=== PATIENT | male | born 1945 | race Caucasian/White ===

== ENCOUNTER 2021-01-20 17:00 | Inpatient (IN) | payer MEDICARE, OTHER ==
[~2021-01-20] VITALS: Ht 172.7 cm; Wt 111.3 kg
[2021-01-20] MEDS ORDERED: TAMS.4ER PO (17:15)
[2021-01-20] MEDS ORDERED: Aspir 8181 MG PO (17:16)
[2021-01-20] MEDS ORDERED: MAGNESIUM OXID500 MG PO (17:16)
[2021-01-20] MEDS ORDERED: LOSA50 PO (17:17)
[2021-01-20] MEDS ORDERED: LABE100 PO ×2 (17:17→18:41)
[2021-01-20] MEDS ORDERED: Methotrexa25 MG/1 ML IM (17:17)
[2021-01-20] MEDS ORDERED: WARF5 PO (17:17)
[2021-01-20] MEDS ORDERED: AMLO5 PO (17:18)
[2021-01-20] MEDS ORDERED: ATOR20 PO (17:18)
[2021-01-20] MEDS ORDERED: SPIR25 PO (17:18)
[2021-01-20] MEDS ORDERED: NIAC500 PO (17:18)
[2021-01-20] MEDS ORDERED: JANUMET 50-1,01 EACH PO (17:19)
[2021-01-20] MEDS ORDERED: Selenomax200 MCG PO (17:19)
[2021-01-20] MEDS ORDERED: FURO40 PO (17:19)
[2021-01-20 17:36] LABS: BASOPHILS ABSOLUTE AUTO 0.06 K/mm3 (0.00-0.23); BASOPHILS PERCENT AUTO 1 % (0-2); EOSINOPHILS ABSOLUTE AUTO 0.07 K/mm3 (0.00-0.68); EOSINOPHILS PERCENT AUTO 1 % (0-6); Hematocrit 24.2 % (37.0-53.0); Hemoglobin 7.3 g/dL (13.5-17.5); IMMATURE GRAN ABSOLUTE AUTO 0.04 K/mm3 (0.00-0.10); IMMATURE GRAN PERCENT AUTO 1 % (0-1); LYMPHOCYTES ABSOLUTE AUTO 1.92 K/mm3 (0.84-5.20); LYMPHOCYTES PERCENT AUTO 27 % (21-46); MONOCYTES PERCENT AUTO 14 % (4-13); Mean Corpuscular HGB 23.9 pg (26.0-34.0); Mean Corpuscular HGB Conc 30.2 g/dL (31.5-36.5); Mean Corpuscular Volume 79 fL (80-100); Mean Platelet Volume 9.6 fL (9.1-12.4); NEUTROPHILS ABSOLUTE AUTO 4.04 K/mm3 (1.96-9.15); NEUTROPHILS PERCENT AUTO 57 % (41-73); Platelet Count 286 K/mm3 (150-400); RDW Coefficient Variation 15.9 % (11.7-14.2); RDW Standard Deviation 45.7 fL (35.1-46.3); Red Blood Cell Count 3.06 M/mm3 (4.30-5.90); White Blood Cell Count 7.13 K/mm3 (4.00-11.30)
[2021-01-20 17:48] LABS: Alanine Aminotransfer (ALT/SGP 22 U/L (12-78); Albumin, Blood 3.1 g/dL (3.4-5.0); Albumin/Globulin Ratio 0.8 (0.8-1.8); Alk Phos 49 U/L (50-136); Anion Gap 4 mmol/L (6-16); Aspartate Aminotrans (AST/SGOT 18 U/L (12-37); Bilirubin, Total 0.4 mg/dL (0.1-1.0); Blood Urea Nitrogen 29 mg/dL (8-24); Bun/Creatinine Ratio 25.7 (12.0-20.0); CO2, Blood 27 mmol/L (21-32); Calcium, Blood 8.7 mg/dL (8.5-10.1); Chloride, Blood 109 mmol/L (98-108); Creatinine, Blood 1.13 mg/dL (0.60-1.20); Globulin, Blood 3.7 g/dL (2.2-4.0); Glomerular Filtration Rate >60 (60-); Glucose, Blood 129 mg/dL (70-99); Potassium, Blood 4.4 mmol/L (3.5-5.5); Sodium, Blood 140 mmol/L (136-145); Total Protein, Blood 6.8 g/dL (6.4-8.2); Troponin I 0.109 ng/mL (0.000-0.040)
[2021-01-20 18:28] LABS: International Normalized Ratio 3.33; Prothrombin Time Results 33.6 Sec (9.7-11.5)
[2021-01-20] MEDS ORDERED: FOLI1 PO (18:36)
[2021-01-20] MEDS ORDERED: AMLODIPINE BESY10 MG PO (18:40)
[2021-01-20] MEDS ORDERED: DOXAZOSIN MESYLA2 MG PO (18:41)
[2021-01-20] MEDS ORDERED: K-Dur 20 meq T20 MEQ PO (18:41)
[2021-01-21 03:13] LABS: BASOPHILS ABSOLUTE AUTO 0.06 K/mm3 (0.00-0.23); BASOPHILS PERCENT AUTO 1 % (0-2); EOSINOPHILS ABSOLUTE AUTO 0.09 K/mm3 (0.00-0.68); EOSINOPHILS PERCENT AUTO 1 % (0-6); Hematocrit 23.1 % (37.0-53.0); IMMATURE GRAN ABSOLUTE AUTO 0.04 K/mm3 (0.00-0.10); IMMATURE GRAN PERCENT AUTO 1 % (0-1); LYMPHOCYTES ABSOLUTE AUTO 1.52 K/mm3 (0.84-5.20); LYMPHOCYTES PERCENT AUTO 21 % (21-46); MONOCYTES PERCENT AUTO 15 % (4-13); Mean Corpuscular HGB 23.6 pg (26.0-34.0); Mean Corpuscular HGB Conc 30.3 g/dL (31.5-36.5); Mean Corpuscular Volume 78 fL (80-100); Mean Platelet Volume 9.1 fL (9.1-12.4); NEUTROPHILS ABSOLUTE AUTO 4.33 K/mm3 (1.96-9.15); NEUTROPHILS PERCENT AUTO 61 % (41-73); Platelet Count 275 K/mm3 (150-400); RDW Coefficient Variation 16.1 % (11.7-14.2); RDW Standard Deviation 45.6 fL (35.1-46.3); Red Blood Cell Count 2.96 M/mm3 (4.30-5.90); White Blood Cell Count 7.14 K/mm3 (4.00-11.30)
[2021-01-21 03:34] LABS: Albumin/Globulin Ratio 0.9 (0.8-1.8); Bilirubin, Total 0.4 mg/dL (0.1-1.0); Bun/Creatinine Ratio 22.1 (12.0-20.0); Calcium, Blood 8.5 mg/dL (8.5-10.1); Creatinine, Blood 1.22 mg/dL (0.60-1.20); Globulin, Blood 3.4 g/dL (2.2-4.0); Percent Saturation 2.9 % (20.0-50.0); Potassium, Blood 4.1 mmol/L (3.5-5.5); Total Protein, Blood 6.4 g/dL (6.4-8.2); Troponin I 0.178 ng/mL (0.000-0.040)
--- NOTE | 2021-01-21 05:14 | NUR ---
SUMMARY PT ARRIVED TO FLOOR IN NO DISTRESS. PT DENIES CX PAIN, SOB, DIZZINESS OR WEAKNESS. PT HAS BEEN NPO SINCE ARRIVING TO ROOM. THIS AM 1 UNIT PRBC WAS ORDERED BY DR ELY. BLOOD WILL TRANFUSED WHEN PRODUCT ARRIVES. PT CURRENTLY SLEEPING IN NO DISTRESS. CALL LIGHT IN REACH.
[2021-01-21 10:41] LABS: International Normalized Ratio 3.26; Prothrombin Time Results 32.9 Sec (9.7-11.5)
--- NOTE | 2021-01-21 15:20 | NUR ---
PATIENT GIVEN BOWEL PREP ORDERED, AT APPROXIMATE 1510, PT NOTIFIED THIS RN THAT HE HAD 2 EPISODES OF LIQUID DARK RED STOOLS, UNABLE TO MEASURE STOOL WAS MIXED WITH TOILET WATER. PT DENIES N&V AND ANY PAIN OR DISCOMFORT. NOTIFIED DR. VIVEROS VIA PHONE CALL. NO FURTHER ORDERS NOTED.
[2021-01-21 15:58] LABS: Hematocrit 29.5 % (37.0-53.0); Hemoglobin 9.1 g/dL (13.5-17.5)
[2021-01-21 16:50] LABS: SARS-Cov-2 (COVID-19) PCR, MMC POSITIVE (NEGATIVE)
--- NOTE | 2021-01-21 16:53 | NUR ---
RECEIVED CALL FROM [place] FROM [facility] THAT PATIENT IS POSITIVE FOR COVID, NOTIFIED DR. VIVEROS AND DR. JOSHI VIA PHONE CALL. NO FURTHER ORDERS NOTED. PT PLACED ON DROPLET PRECAUTIONS.
--- NOTE | 2021-01-21 18:24 | NUR ---
SHIFT SUMMARY PT AAOX4, ABLE TO MAKE NEEDS KNOWN, PLEASANT AND COOPERATIVE TO CARE. NO C/O PAIN OR ANY DISCOMFORT THIS SHIFT. NO C/O CP, SOB OR N&V. LSCTA, RESPS E/U IN RA, NO COUGH NOTED. PT WAS NOTED TO HAVE 2 MORE SMALL EPISODES OF LIQUID DARK RED STOOLS, THEN SUBSIDED AROUND 1700 THIS SHIFT. PT CONTINUES TO DENY N&V OR ABD PAIN. DR. VIVEROS AND DR. JOSHI NOTIFIED OF THE ABOVE. NO FURTHER ORDERS NOTED. PT TOLERATING CLEAR LIQUID DIET WELL. PT INDEPENDENT IN ROOM, CALLS APPROPRIATELY FOR ASSISTANCE. BED AT LOWEST POSITION. CALL LIGHT WITHIN REACH.
[2021-01-22 04:42] LABS: Hemoglobin 7.4 g/dL (13.5-17.5); Mean Corpuscular HGB 24.1 pg (26.0-34.0); Mean Corpuscular HGB Conc 29.6 g/dL (31.5-36.5); Mean Corpuscular Volume 81 fL (80-100); Mean Platelet Volume 9.2 fL (9.1-12.4); Platelet Count 257 K/mm3 (150-400); RDW Coefficient Variation 16.2 % (11.7-14.2); RDW Standard Deviation 47.3 fL (35.1-46.3); Red Blood Cell Count 3.07 M/mm3 (4.30-5.90); White Blood Cell Count 6.63 K/mm3 (4.00-11.30)
[2021-01-22 04:57] LABS: Prothrombin Time Results 21.7 Sec (9.7-11.5)
[2021-01-22 04:59] LABS: Alanine Aminotransfer (ALT/SGP 19 U/L (12-78); Albumin, Blood 2.9 g/dL (3.4-5.0); Albumin/Globulin Ratio 0.9 (0.8-1.8); Alk Phos 44 U/L (50-136); Anion Gap 5 mmol/L (6-16); Aspartate Aminotrans (AST/SGOT 14 U/L (12-37); Bilirubin, Total 0.3 mg/dL (0.1-1.0); Blood Urea Nitrogen 20 mg/dL (8-24); Bun/Creatinine Ratio 16.9 (12.0-20.0); C-REACTIVE PROTEIN, EXT RANGE <0.290 mg/dL (0.000-0.300); CO2, Blood 26 mmol/L (21-32); Calcium, Blood 8.2 mg/dL (8.5-10.1); Chloride, Blood 111 mmol/L (98-108); Creatinine, Blood 1.18 mg/dL (0.60-1.20); Globulin, Blood 3.3 g/dL (2.2-4.0); Glomerular Filtration Rate >60 (60-); Glucose, Blood 103 mg/dL (70-99); Magnesium, Blood 2.2 mg/dL (1.6-2.4); Sodium, Blood 142 mmol/L (136-145); Total Protein, Blood 6.2 g/dL (6.4-8.2)
[2021-01-22 05:09] LABS: D-Dimer, Quantitative <0.19 mg/L FEU (0.00-0.52)
[2021-01-22 09:39] LABS: SARS-Cov-2 (COVID-19) PCR, MMC POSITIVE (NEGATIVE)
--- NOTE | 2021-01-22 10:43 | NUR ---
01/22/21 1042 Sis Waldron History, Chart, Medications and Allergies reviewed before start of procedure. 3-LEAD EKG REVIEWED WITH PHYSICIAN PRIOR TO START OF PROCEDURE. MONITOR INTACT WITH CONTINUOUS PULSE OXIMETRY AND INTERMITTENT BP. O2 VIA N/C INTACT THROUGHOUT SEDATION/PROCEDURE. See Anesthesia record.
[2021-01-22 15:59] LABS: Hematocrit 25.4 % (37.0-53.0); Hemoglobin 7.9 g/dL (13.5-17.5)
--- NOTE | 2021-01-22 18:07 | NUR ---
SHIFT SUMMARY PT AAOX4, ABLE TO MAKE NEEDS KNOWN. PLEASANT AND COOPERATIVE TO CARE. NO C/O PAIN OR ANY DISCOMFORT THIS SHIFT. NO C/O CP, SOB, OR N&V. PT HAD SCHEDULED PROCEDURE THIS SHIFT. NO ACUTE CHANGES NOTED TO PT THIS SHIFT. INDEPENDENT IN THE ROOM. CALLS APPROPRIATELY FOR ASSISTANCE. BED AT LOWEST POSITION. CALL LIGHT WITHIN REACH.
[2021-01-23 04:45] LABS: Hematocrit 24.5 % (37.0-53.0); Hemoglobin 7.3 g/dL (13.5-17.5); Mean Corpuscular HGB 24.1 pg (26.0-34.0); Mean Corpuscular HGB Conc 29.8 g/dL (31.5-36.5); Mean Corpuscular Volume 81 fL (80-100); Mean Platelet Volume 9.2 fL (9.1-12.4); NRBC ABSOLUTE 0.02 K/mm3 (0.00-0.02); NRBC Auto 0.3 /100 WBC (0.0-0.2); Platelet Count 287 K/mm3 (150-400); RDW Coefficient Variation 16.7 % (11.7-14.2); RDW Standard Deviation 47.5 fL (35.1-46.3); Red Blood Cell Count 3.03 M/mm3 (4.30-5.90); White Blood Cell Count 7.42 K/mm3 (4.00-11.30)
[2021-01-23 05:03] LABS: Anion Gap 5 mmol/L (6-16); Blood Urea Nitrogen 11 mg/dL (8-24); Bun/Creatinine Ratio 9.5 (12.0-20.0); CO2, Blood 26 mmol/L (21-32); Calcium, Blood 8.5 mg/dL (8.5-10.1); Chloride, Blood 111 mmol/L (98-108); Creatinine, Blood 1.16 mg/dL (0.60-1.20); Glomerular Filtration Rate >60 (60-); Glucose, Blood 144 mg/dL (70-99); Potassium, Blood 3.5 mmol/L (3.5-5.5); Sodium, Blood 142 mmol/L (136-145)
[2021-01-23 09:08] LABS: SARS COV-2 IGG AB Positive (Negative); SARS COV-2 IGM AB Positive (Negative)
[2021-01-23] MEDS ORDERED: PANT40 PO (10:04)
--- NOTE | 2021-01-23 11:34 | NUR ---
DISCHARGE SUMMARY PT DISCHARGE TO HOME THIS SHIFT AT APPROX 1130. PT's SPOUSE PRESENT DURING DISCHARGE TEACHING. PT AND SPOUSE VERBALIZED UNDERSTANDING OF DISCHARGE ORDERS AND EDUCATION. NO C/O PAIN OR ANY DISCOMFORT NOTED FROM PT, PT DENIED ANY ISSUES OR CONCERNS PRIOR TO DISCHARGE. IV LINES AND TELE DISCONTINUED PRIOR TO DISCHARGE. DISCHARGE PACKET GIVEN TO PATIENT UPON DISCHARGE.
== END 2021-01-23 11:34 | disposition home or self-care (01) | DRG 393 ==
LOC: ER 17:00 → MEDS 21:37 → ENPENDDIS 01-23 09:58 → MEDS 01-23 11:34
PROVIDERS: Emergency Medicine; Internal Medicine Gastroenterology; Student in an Organized Health Care Education/Training Program; ADMIT Internal Medicine
PROC: 30233N1 Transfusion of Nonautologous Red Blood Cells into Peripheral Vein, Percutaneous Approach (ICD-10-PCS; 2021-01-20)
PROC: 0DBH8ZZ Excision of Cecum, Via Natural or Artificial Opening Endoscopic (ICD-10-PCS; principal; 2021-01-22 11:00)
PROC: 0DB68ZX Excision of Stomach, Via Natural or Artificial Opening Endoscopic, Diagnostic (ICD-10-PCS; 2021-01-22 11:00)
PROC: 0D598ZZ Destruction of Duodenum, Via Natural or Artificial Opening Endoscopic (ICD-10-PCS; 2021-01-22 11:00)
DX: K64.8 Other hemorrhoids (principal); I21.A1 Myocardial infarction type 2; K22.10 Ulcer of esophagus without bleeding; D64.9 Anemia, unspecified; I25.10 Atherosclerotic heart disease of native coronary artery without angina pectoris; E11.9 Type 2 diabetes mellitus without complications; I48.0 Paroxysmal atrial fibrillation; K57.30 Diverticulosis of large intestine without perforation or abscess without bleeding; K63.5 Polyp of colon; K59.00 Constipation, unspecified; Z88.8 Allergy status to other drugs, medicaments and biological substances; Z79.899 Other long term (current) drug therapy; Z95.1 Presence of aortocoronary bypass graft; Z98.890 Other specified postprocedural states; E66.9 Obesity, unspecified; E78.5 Hyperlipidemia, unspecified; Z96.612 Presence of left artificial shoulder joint; Z79.82 Long term (current) use of aspirin; Z79.01 Long term (current) use of anticoagulants; T45.515A Adverse effect of anticoagulants, initial encounter; Z96.651 Presence of right artificial knee joint; Z68.36 Body mass index [BMI] 36.0-36.9, adult; I99.8 Other disorder of circulatory system
CPT/HCPCS: 36415; 36430; 71045; 80048; 80053; 82728; 82947; 83540; 83550; 83735; 84484; 85014; 85018; 85025; 85027; 85379; 85610; 85651; 86140; 86769; 86850; 86900; 86901; 86923; 88305; 88342; 93005; 93010; 94760; 99285-25; A9270; C9113; J1815; J2704; J2916; J3430; J7030; J7050; J7120; P9016; U0004